=== PATIENT | female | born 1975 | race African-American/Black ===

== ENCOUNTER 2017-02-22 08:24 | Emergency (ER) | payer MEDICAID ==
[~2017-02-22] VITALS: Ht 170.2 cm; Wt 81.6 kg
[~2017-02-22 08:24] MED LIST: BACTRIM SINGLE S1 EA PO; IBUPROFEN600 MG PO; KEFLEX500 MG PO; NKM; NORCO 5-325 TA1 EACH PO
[2017-02-22] MEDS ORDERED: ALBUTEROL SULF8.5 GM INH ×2 (08:36→09:43)
[2017-02-22] MEDS ORDERED: QVAR7.3 G2 IH (08:36)
[2017-02-22 08:42] VITALS: BP 165/99
[2017-02-22] MEDS ORDERED: Albuterol ud Inhalation HHN ONE (08:45)
[2017-02-22] MEDS ORDERED: PredniSONE 20mg tab ORAL ONE (08:45)
[2017-02-22] MEDS ORDERED: Ipratropium 0.02% Inh Soln 2.5ml UD HHN ONE (08:45)
--- NOTE | 2017-02-22 08:57 | Emergency Room Report ---
History of Present Illness General Chief Complaint: Dyspnea/Respdistress Source: Patient Present Illness HPI This patient has a history of asthma. She also continues to smoke. She does have a plan to stop smoking. Patient states that last night she noted some shortness of breath and then this morning woke up with wheezing difficulty breathing. She is also out of her albuterol and Qvar. She states that she does have a nebulizer machine but she does not use it because she does not have the medication to go into it. She denies recent illness. She denies cough or congestion. She denies fever or chills. She has no other complaints. Allergies: Coded Allergies: ERYTHROMYCIN LACTOBIONATE (Verified Allergy, Mild, Hives, 01/14/13) Patient History Past Medical History: see triage record, HTN, asthma Social History: Reports: smoking, Denies: alcohol use, drug use Last Menstrual Period: One week ago Now: No Reviewed Nursing Documentation: PMH: Agreed, PSxH: Agreed Nursing Documentation-PMH Hx Hypertension: Yes Hx Asthma: Yes Review of Systems All Other Systems: negative except mentioned in HPI Physical Exam Vital Signs Date Time Temp Pulse Resp B/P Pulse Ox O2 Delivery O2 Flow Rate FiO2 02/22/17 08:32 98.1 98 22 187/98 85 Room Air 02/22/17 08:49 2.0 28 Sp02 EP Interpretation: reviewed, normal General Appearance: no apparent distress, alert, GCS 15, non-toxic Head: normocephalic, atraumatic Eyes: bilateral eye PERRL, bilateral eye normal inspection ENT: hearing grossly normal, normal pharynx, no angioedema, normal voice Neck: full range of motion, supple/symm/no masses Respiratory: chest non-tender, no respiratory distress, no retraction, no accessory muscle use, speaking full sentences, wheezing, expiration Cardiovascular #1: regular rate, rhythm, no edema Gastrointestinal: normal bowel sounds, non tender, soft, non-distended, no guarding, no rebound Rectal: deferred Musculoskeletal: back normal, gait/station normal, normal range of motion, non- tender Neurologic: alert, oriented x3, responsive, motor strength/tone normal, sensory intact, speech normal Psychiatric: judgement/insight normal, memory normal, mood/affect normal, no suicidal/homicidal ideation Skin: normal color, no rash, warm/dry, well hydrated Medical Decision Making Diagnostic Impression: Primary Impression: Asthma exacerbation ER Course This patient has a clinical presentation consistent with asthma exacerbation. Patient has a history of asthma and has wheezing on physical exam. The patient was given albuterol and Atrovent nebulizer treatments. The patient was also given prednisone orally. The patient had significant improvement in subjective shortness of breath. The patient's lung exam improved significantly. I will also treat the patient with a course of antibiotics as this has been shown to improve the course of an asthma exacerbation. The patient was given close return precautions and followup instructions. Last Vital Signs Date Time Temp Pulse Resp B/P Pulse Ox O2 Delivery O2 Flow Rate FiO2 02/22/17 08:49 28 02/22/17 08:49 99 15 Nasal Cannula 2.0 02/22/17 08:49 97 02/22/17 08:32 98.1 187/98 Status: improved Disposition: HOME, SELF-CARE Condition: Improved Referrals: NOT CHOSEN [facility]ACEY/,REFERRING (PCP) JACINTO COREAS D.O. Feb 22, 2017 08:57
[2017-02-22] MEDS ORDERED: E-Z SPACER1 EACH MC (09:43)
[2017-02-22] MEDS ORDERED: ALBUTEROL2.5 MG/3 M HHN (09:43)
[2017-02-22] MEDS ORDERED: PREDNISONE20 MG ORAL (09:43)
[2017-02-22 10:03] VITALS: BP 149/97
== END 2017-02-22 10:03 | disposition home or self-care (01) ==
LOC: EMR 08:46
DX: J45.901 Unspecified asthma with (acute) exacerbation (principal); I10 Essential (primary) hypertension; Z88.1 Allergy status to other antibiotic agents
CPT/HCPCS: 94640; 94664; 99284

== ENCOUNTER 2018-02-27 05:50 | Emergency (ER) | payer MEDICAID ==
[~2018-02-27] VITALS: Ht 170.2 cm; Wt 80.3 kg
[~2018-02-27 05:50] MED LIST changes: +ALBUTEROL SULF8.5 GM INH; +ALBUTEROL2.5 MG/3 M HHN; +E-Z SPACER1 EACH MC; +PREDNISONE20 MG ORAL; +QVAR7.3 G2 IH
[2018-02-27 06:20] VITALS: BP 157/94
[2018-02-27] MEDS ORDERED: Tylenol #3 tab (300mg/30mg) ORAL ONE (06:45)
[2018-02-27] MEDS ORDERED: DiphenhydrAMINE 50mg/ml Inj IVP ONE (06:45)
[2018-02-27] MEDS ORDERED: Ketorolac 30mg Inj IV ONE (06:45)
[2018-02-27] MEDS ORDERED: Metoclopramide 10mg/2ml Inj IVP ONE (06:45)
[2018-02-27 08:18] VITALS: BP 121/76
--- NOTE | 2018-02-27 08:46 | Emergency Room Report ---
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 Pain is diffuse throbbing sensation Denies any visual change She felt that the pain was worse when she turned to her left side Denies any fall or trauma and eyes any fevers or chills denies any neck pain denies any recent travel Allergies: Coded Allergies: ERYTHROMYCIN LACTOBIONATE (Verified Allergy, Mild, Hives, 01/14/13) Patient History Past Medical History: see triage record Pertinent Family History: none Last Menstrual Period: January Reviewed Nursing Documentation: PMH: Agreed; PSxH: Agreed Nursing Documentation-PMH Hx Hypertension: Yes Hx Asthma: Yes Review of Systems All Other Systems: negative except mentioned in HPI Physical Exam Vital Signs Date Time Temp Pulse Resp B/P (MAP) Pulse Ox O2 Delivery O2 Flow Rate FiO2 02/27/18 05:57 97.8 101 18 157/94 97 Room Air 97.9 Sp02 EP Interpretation: reviewed, normal General Appearance: no apparent distress - However patient had eyes closed sitting in room Head: normocephalic, atraumatic Eyes: bilateral eye PERRL, bilateral eye EOMI ENT: hearing grossly normal, normal pharynx, TMs + canals normal, uvula midline Neck: full range of motion, supple, no meningismus, no bony tend Respiratory: lungs clear, normal breath sounds, no rhonchi, no respiratory distress, no retraction, no accessory muscle use Cardiovascular #1: normal peripheral pulses, regular rate, rhythm, no edema, no gallop, no JVD, no murmur Gastrointestinal: normal bowel sounds, non tender, soft, no mass, no organomegaly, non-distended, no guarding, no hernia, no pulsatile mass, no rebound Genitourinary: no CVA tenderness Musculoskeletal: normal inspection Neurologic: oriented x3, responsive, handle maker III-XII nml as tested, motor strength/ tone normal, sensory intact Psychiatric: mood/affect normal Skin: normal color, no rash, warm/dry, palpation normal Lymphatic: normal inspection, no adenopathy Medical Decision Making Diagnostic Impression: Primary Impression: Headache ER Course Multiple differentials including but not limited to neurological, neurosurgical , infectious pathology entertained Patient has a benign neurological exam This time has IV hydration and pain control provided Has done significantly better Does not meet criteria for emergency imaging and his disposition for close follow-up Last Vital Signs Date Time Temp Pulse Resp B/P (MAP) Pulse Ox O2 Delivery O2 Flow Rate FiO2 02/27/18 08:18 98.7 89 15 121/76 98 Room Air 98.7 Status: improved Disposition: HOME, SELF-CARE Condition: Improved Scripts Ibuprofen* (MOTRIN*) 600 Mg Tablet 600 MG ORAL Q8H PRN for For Pain, #20 TAB 0 Refills Prov: Fransico Adame DO 02/27/18 Acetaminophen With Codeine (T#3) (TYLENOL #3 TAB*) Y Tab 1 TAB ORAL Q8H PRN for For Pain, #7 TAB Prov: Fransico Adame DO 02/27/18 Referrals: [facility]ERR[facility] (PCP) Additional Instructions: Patient is provided with the discharge instructions notified to follow up with primary doctor in the next 2-3 days otherwise return to the er with any worsening symptoms. Please note that this report is being documented using [employer] technology. This can lead to erroneous entry secondary to incorrect interpretation by the dictating instrument. Fransico Adame DO Feb 27, 2018 08:46
[2018-02-27] MEDS ORDERED: IBUPROFEN600 MG ORAL (08:53)
[2018-02-27] MEDS ORDERED: ACETAMINOPHEN-1 EAC1 ORAL (08:53)
[2018-02-27 09:00] VITALS: BP 121/76
== END 2018-02-27 09:05 | disposition home or self-care (01) ==
LOC: EMR 06:23
DX: R51 Headache (principal); I10 Essential (primary) hypertension; J45.909 Unspecified asthma, uncomplicated; Z88.1 Allergy status to other antibiotic agents
CPT/HCPCS: 99284; J1200; J1885; J2765

== ENCOUNTER 2018-08-02 12:52 | Emergency (ER) | payer MEDICAID ==
[~2018-08-02] VITALS: Ht 170.2 cm; Wt 78.0 kg
[~2018-08-02 12:52] MED LIST changes: +ACETAMINOPHEN-1 EAC1 ORAL; +IBUPROFEN600 MG ORAL
--- NOTE | 2018-08-02 13:07 | NUR ---
ED Nurse Note: Pt is here for anxiety that started last night. No precipitating factor. No complaints of pain. A + O x4. Ambulatory. When asked why she is having anxiety, pt states she is stressed out and overwhelmed.
[2018-08-02 13:08] VITALS: BP 160/98
--- NOTE | 2018-08-02 13:44 | Emergency Room Report ---
History of Present Illness General Chief Complaint: General Complaint Source: Patient Present Illness HPI 43-year-old female patient presents the ER complaining of "feeling stressed out ". Reports symptoms began earlier today. Also reports that she would like to have her blood pressure checked. States that she has been taking her medication as instructed, states she takes hydrochlorthiazide once a day. Denies fever, chest pain, shortness of breath, abdominal pain. Reports history of asthma. Denies breathing difficulties. States she has been using inhaler. Reports that she has a lot of stressors at home. Denies history of stress or anxiety. Denies thoughts of hurting herself or others. Requesting work note. Allergies: Coded Allergies: ERYTHROMYCIN LACTOBIONATE (Verified Allergy, Mild, Hives, 01/14/13) Patient History Past Medical History: see triage record Last Menstrual Period: 07/17/18 Now: No Reviewed Nursing Documentation: PMH: Agreed; PSxH: Agreed Nursing Documentation-PMH Past Medical History: No History, Except For Hx Hypertension: Yes Hx Asthma: Yes Review of Systems All Other Systems: negative except mentioned in HPI Physical Exam Vital Signs Date Time Temp Pulse Resp B/P (MAP) Pulse Ox O2 Delivery O2 Flow Rate FiO2 08/02/18 13:00 98.1 94 14 161/99 94 Room Air 08/02/18 13:08 99 Sp02 EP Interpretation: reviewed, normal General Appearance: well appearing, no apparent distress, alert, GCS 15, non- toxic Head: normocephalic, atraumatic Eyes: bilateral eye normal inspection, bilateral eye PERRL ENT: hearing grossly normal, normal pharynx, no angioedema, normal voice, uvula midline, moist mucus membranes Neck: full range of motion Respiratory: lungs clear, normal breath sounds, no rhonchi, no respiratory distress, no accessory muscle use, no wheezing, speaking full sentences Cardiovascular #1: regular rate, rhythm, no edema Cardiovascular #2: 2+ radial (R), 2+ radial (L) Gastrointestinal: non tender, soft, no mass, non-distended, no guarding, no rebound Genitourinary: no CVA tenderness Musculoskeletal: back normal, digits/nails normal, gait/station normal, normal range of motion, non-tender Neurologic: alert, oriented x3, responsive, motor strength/tone normal, sensory intact Psychiatric: mood/affect normal, no suicidal/homicidal ideation Skin: no rash, normal turgor Lymphatic: no adenopathy Medical Decision Making PA Attestation Dr. James is my supervising Physician whom patient management has been discussed with. Diagnostic Impression: Primary Impression: Feeling stressed out Additional Impression: Elevated blood pressure reading ER Course Pt. presents to the ED c/o "feeling stressed out" and wanting blood pressure to be checked. Ddx considered but are not limited to stress, anxiety, AK, CHF, asthma, URI, influenza. Vital signs: are WNL, pt. is afebrile Blood pressure mildly elevated at this time. Denies chest pain, shortness of breath, vision changes, does not require acute intervention at ER at this time. Follow with primary care provider discuss further treatment and referral. Advised on low-sodium diet, advised on diet and exercise. ER COURSE: Physical exam benign. Lungs clear to auscultation. Denies breathing difficulties. Does not require breathing treatment or refill of asthma medication. Patient states she did not want medication for anxiety. Advised patient on stress reduction, eating healthy and exercise. Advised on drinking plenty of fluids and getting enough sleep. Advised patient to followup with mental health urgent care. Instructed patient to followup with PCP and discuss further treatment and referral. ER precautions. DISCHARGE: At this time pt is stable for d/c to home. Patient is resting comfortably, in no acute distress, nontoxic appearing, talking without difficulty. Patient to take medications as instructed Will provide with patient care instructions and any necessary prescriptions. Care plan and follow-up instructions provided. Patient instructed to follow-up with primary care provider in 3 - 5 days. Patient questions asked and answered. Patient reports understanding and agreement to treatment plan. ER precautions given. Patient instructed to return to ER immediately for any new or worsening of symptoms including but not limited to increasing SOB, persistent fever, chest pain, intractable vomiting. - Please note that this Emergency Department Report was dictated using [employer] technology software, occasionally this can lead to erroneous entry secondary to interpretation by the dictation equipment. Last Vital Signs Date Time Temp Pulse Resp B/P (MAP) Pulse Ox O2 Delivery O2 Flow Rate FiO2 08/02/18 13:08 95 12 Room Air 99 08/02/18 13:08 98.0 160/98 98 Disposition: HOME, SELF-CARE Condition: Stable Patient Instructions: DASH Eating Plan, Stress and Stress Management Additional Instructions: Followup with primary care provider in 3 -5 days. Discuss elevated blood pressure reading and need for further medication. Advised on diet and exercise. Advised on avoiding stressors. Advised on eating healthy. Low-sodium diet. Follow-up with mental health urgent care. Take medications as directed. Patient questions asked and answered. ER precautions given, patient instructed to return to ER immediately for any new or worsening of symptoms. Levar Howard Aug 02, 2018 13:44
[2018-08-02 13:48] VITALS: BP 125/75
--- NOTE | 2018-08-02 13:49 | NUR ---
ED Nurse Note: Discharge instructions given to pt. Answered all questions. Verbalized understanding. No acute distres noted. A+ O x4. Ambulatory. Left ER w/ steady gait. Left w/ all belongings. ID band removed.
== END 2018-08-02 13:50 | disposition home or self-care (01) ==
LOC: EMR 13:50
DX: F43.9 Reaction to severe stress, unspecified (principal); I10 Essential (primary) hypertension; J45.909 Unspecified asthma, uncomplicated
CPT/HCPCS: 99282

== ENCOUNTER 2019-02-04 17:04 | Emergency (ER) | payer MEDICAID ==
[~2019-02-04] VITALS: Ht 170.2 cm; Wt 76.2 kg
[2019-02-04 17:20] VITALS: BP 136/77
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
--- NOTE | 2019-02-04 18:36 | NUR ---
ED Nurse Note: pt went down to CT scan with a tech in stable condition.
--- NOTE | 2019-02-04 18:38 | NUR ---
ED Nurse Note: pt came back from CT in stable condition.
[2019-02-04] MEDS ORDERED: NAPROXEN500 M2 ORAL (18:57)
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
[2019-02-04 19:07] VITALS: BP 160/92
--- NOTE | 2019-02-04 19:09 | NUR ---
ER DISCHARGE NOTE: Patient is cleared to be discharged per ERPA after discussing CT result, pt is aox4, on room air, with stable vital signs. pt was given dc and prescription instructions, pt was able to verbalize understanding, pt id band removed. pt is able to ambulate with steady gait. pt took all belongings.
--- NOTE | 2019-02-05 09:22 | Diagnostic Imaging Report ---
Indications: Trauma Technique: Spiral acquisitions obtained through the brain. Angled axial and coronal 5 x 5 mm slices were reconstructed. Total dose length product 1337.38 mGycm. CTDI vol(s) 70.38 mGy. Dose reduction achieved using automated exposure control Comparison: None. Findings: No acute intrarenal hemorrhage or edema, mass effect, nor midline shift. Normal cueva-white differentiation. Visualized orbits and sinuses are unremarkable. The mastoids are clear. The calvarium is intact. Impression: Negative This agrees with the preliminary interpretation provided overnight by [facility]erad[facility] service. The CT scanner at [facility] is accredited by the [employer] and the scans are performed using protocols designed to limit radiation exposure to as low as reasonably achievable to attain images of sufficient resolution adequate for diagnostic evaluation.
== END 2019-02-04 19:09 | disposition home or self-care (01) ==
LOC: EMR 18:13
DX: S00.432A Contusion of left ear, initial encounter (principal); X58.XXXA Exposure to other specified factors, initial encounter; Y92.9 Unspecified place or not applicable; I10 Essential (primary) hypertension; Z88.8 Allergy status to other drugs, medicaments and biological substances
CPT/HCPCS: 70450; 99284